=== PATIENT | male | born 1995 | race Caucasian/White ===

== ENCOUNTER 2019-11-15 14:28 | Inpatient (IN) | payer OTHER ==
[~2019-11-15] VITALS: Ht 177.8 cm; Wt 86.0 kg
--- NOTE | 2019-11-15 15:57 | PHYS DOC ---
Past Medical History Past Medical History: Other Additional Past Medical Histor: INGUINAL HERNIA Past Surgical History: No Surgical History Smoking Status: Former Smoker Alcohol Use: None General Adult EDM: Chief Complaint: ABDOMINAL PAIN HPI: HPI: Patient is a 23 year old male who presents with states since August 2014 he has had this left inguinal hernia that is gotten worse over the last 3 years. States it is very painful now so she wanted to touch and is now gone down into his scrotum. Upon examination patient's left side of his scrotum is swollen and there is bowel. It is tender with palpation. When I try to reduce the hernia it is soft, tender to the patient and is not reducible. States his burning nonradiating left inguinal pain is a 7 out of 10. Patient denies abdominal pain, nausea, vomiting, fever, diarrhea, constipation, dysuria, penile discharge, chest pain, shortness of air, cough, numbness or tingling. Patient was asymptomatic with COVID back in August. Review of Systems: Review of Systems: Constitutional: Denies fever or chills. [] Eyes: Denies change in visual acuity. [] HENT: Denies nasal congestion or sore throat. [] Respiratory: Denies cough or shortness of breath. [] Cardiovascular: Denies chest pain or edema. [] GI: Denies abdominal pain, nausea, vomiting, bloody stools or diarrhea. Inguinal hernia pain. [] : Denies dysuria. Left scrotum swelling and pain. [] Musculoskeletal: Denies back pain or joint pain. [] Integument: Denies rash. [] Neurologic: Denies headache, focal weakness or sensory changes. [] Endocrine: Denies polyuria or polydipsia. [] Lymphatic: Denies swollen glands. [] Psychiatric: Denies depression or anxiety. [] Heart Score: Risk Factors: Risk Factors: DM, Current or recent (<one month) smoker, HTN, HLP, family history of CAD, obesity. Risk Scores: Score 0 - 3: 2.5% MACE over next 6 weeks - Discharge Home Score 4 - 6: 20.3% MACE over next 6 weeks - Admit for Clinical Observation Score 7 - 10: 72.7% MACE over next 6 weeks - Early Invasive Strategies Current Medications: Current Medications Medications (Trade) Dose Ordered Sig/Funmilayo Start Time Stop Time Status Last Admin Dose Admin Fentanyl Citrate (Fentanyl 2ml Vial) 25 mcg 1X ONCE 11/15/19 16:00 11/15/19 16:01 Sodium Chloride 1,000 ml @ 1,000 mls/hr 1X ONCE 11/15/19 16:00 11/15/19 16:59 Allergies: Allergies: Allergies Coded Allergies Type Severity Reaction Last Updated Verified No Known Drug Allergies 11/15/19 No Physical Exam: PE: Constitutional: Well developed, well nourished, no acute distress, non-toxic appearance. [] HENT: Normocephalic, atraumatic, bilateral external ears normal, oropharynx mo ist, no oral exudates, nose normal. [] Eyes: PERRLA, EOMI, conjunctiva normal, no discharge. [] Neck: Normal range of motion, no tenderness, supple, no stridor. [] Cardiovascular:Heart rate regular rhythm, no murmur [] Lungs & Thorax: Bilateral breath sounds clear to auscultation [] Abdomen: Bowel sounds normal, soft, no tenderness, no masses, no pulsatile masses. Left scrotal swelling with left inguinal hernia tenderness [] Skin: Warm, dry, no erythema, no rash. [] Back: No tenderness, no CVA tenderness. [] Extremities: No tenderness, no cyanosis, no clubbing, ROM intact, no edema. [] Neurologic: Alert and oriented X 3, normal motor function, normal sensory function, no focal deficits noted. [] Psychologic: Affect normal, judgement normal, mood normal. [] Current Patient Data: Vital Signs: Vital Signs Date Time Temp Pulse Resp B/P (MAP) Pulse Ox O2 Delivery O2 Flow Rate FiO2 11/15/19 14:52 98.2 73 14 146/63 (90) 99 Room Air 98.2 EKG: EKG: [] Radiology/Procedures: Radiology/Procedures: [] Impression: [facility] [address] [place], [place] [id number] IMAGING REPORT Signed PATIENT: BOONE BARRERA: [id number] : 1995 LOCATION: ER AGE: 23 SEX: M EXAM STATUS: REG ER ORD. PHYSICIAN: OSKAR GEE APRN REASON: Incarcerated left inguinal hernia PROCEDURE: CT ABD PELV W/ IV CONTRST ONLY Exam: CT of abdomen and pelvis with contrast INDICATION: Incarcerated left inguinal hernia TECHNIQUE: Sequential axial images through the abdomen and pelvis obtained following the administration of 75 mL of Omni 300 IV contrast. Sagittal and coronal reformatted images were reconstructed from the axial data and reviewed. Comparisons: None FINDINGS: Heart size is normal. No pericardial effusion. Visualized lung bases are clear. No pleural effusion. Liver, spleen, pancreas, gallbladder and adrenals are unremarkable. Kidneys demonstrate symmetric enhancement. No perinephric inflammation or hydronephrosis. No renal or ureteral calculi are identified. Bladder is distended and appears thin-walled. Prostate is not enlarged. Large and small bowel are unremarkable. Appendix is normal. No free intra-abdominal air or fluid. No obstruction. Abdominal aorta has a normal course and caliber. Abdominal vasculature is patent. No enlarged abdominal lymph nodes are identified. There is a moderate-sized fat-containing left indirect inguinal hernia which extends into the scrotum. Mild stranding is noted within the herniated fat. No suspicious osseous lesions or acute fractures. IMPRESSION: Moderate-sized fat-containing left inguinal hernia. No herniated bowel or evidence for obstruction. There is mild fat stranding in the herniated fat which could relate to inflammation. Exposure: One or more of the following in the visualized dose reduction techniques were utilized for this examination: 1. Automated exposure control 2. Adjustment of the MA and/or KV according to patient size 3. Use of iterative of reconstructive technique Electronically signed by: Jennifer Dyer MD (11/15/2019 5:21 PM) [id number] DICTATED and SIGNED BY: JENNIFER DYER MD DATE: 11/15/19 172 Course & Med Decision Making: Course & Med Decision Making Pertinent Labs and Imaging studies reviewed. (See chart for details) Alert and oriented. Speaks in full complete sentences. Ambulatory with steady gait. See HPI. Abdomen is soft and nontender. Tenderness to the left scrotum. Hernia is incarcerated. Hernia can not be reduced. No redness or cellulitis seen. No sores. No penile discharge. I have had Dr Hunt go see the patient and he agrees that it is incarcerated. I have spoken to Dr Lockhart concerning this patient and he states to keep the patient NPO. [] Dragon Disclaimer: Maria D Disclaimer: This electronic medical record was generated, in whole or in part, using a voice recognition dictation system. Departure Departure Impression: Primary Impression: Incarcerated hernia Disposition: ADMITTED INPATIENT Admitting Physician: OUMOU Condition: STABLE Referrals: AUDREY JOSE DO (PCP) Justicifation of Admission Dx: Justifications for Admission: Justification of Admission Dx: Yes Comments: incarcerated bowel OSKAR GEE BELL PERSON Nov 15, 2019 15:57
[2019-11-15] MEDS ORDERED: fentaNYL PF VIAL 100 MCG/2 ML VIAL IVP ONE (16:00)
[2019-11-15] MEDS ORDERED: IV NORMAL SALINE 1000ML BAG 1,000 ML IV ONE (16:00)
[2019-11-15 16:16] LABS: BASO # 0.1 x10^3/uL (0.0-0.2); BASO % 1 % (0-3); EOS # 0.2 x10^3/uL (0.0-0.7); EOS % 2 % (0-3); HEMATOCRIT 41.3 % (39.0-53.0); HEMOGLOBIN 14.4 g/dL (13.0-17.5); LYMPH # 2.4 x10^3/uL (1.0-4.8); LYMPH % 25 % (24-48); MEAN CORPUSCULAR HEMOGLOBIN 30 pg (25-35); MEAN CORPUSCULAR HGB CONC 35 g/dL (31-37); MEAN CORPUSCULAR VOLUME 87 fL (79-100); MONO # 0.7 x10^3/uL (0.0-1.1); MONO % 7 % (0-9); NEUT # 6.3 x10^3/uL (1.8-7.7); NEUT % 66 % (31-73); PLATELET COUNT 277 x10^3/uL (140-400); RED BLOOD COUNT 4.74 x10^6/uL (4.30-5.70); RED CELL DISTRIBUTION WIDTH 13.5 % (11.5-14.5); WHITE BLOOD COUNT 9.6 x10^3/uL (4.0-11.0)
[2019-11-15 16:26] LABS: CALCIUM 8.5 mg/dL (8.5-10.1); CREATININE 1.1 mg/dL (0.7-1.3); GFR 82.2; POTASSIUM 3.8 mmol/L (3.5-5.1)
[2019-11-15 16:29] LABS: PROTHROMBIN TIME PATIENT 13.4 SEC (11.7-14.0)
[2019-11-15 16:37] LABS: ALBUMIN 3.9 g/dL (3.4-5.0); ALBUMIN/GLOBULIN RATIO 1.1 (1.0-1.7); TOTAL BILIRUBIN 0.4 mg/dL (0.2-1.0); TOTAL PROTEIN 7.4 g/dL (6.4-8.2)
[2019-11-15] MEDS ORDERED: CONTRAST GIVEN. MC PRN (16:45)
[2019-11-15] MEDS ORDERED: IOHEXOL 300 MG/ML 100ML VIAL. IV ONE (16:45)
--- NOTE | 2019-11-15 17:24 | RAD ---
Exam: CT of abdomen and pelvis with contrast INDICATION: Incarcerated left inguinal hernia TECHNIQUE: Sequential axial images through the abdomen and pelvis obtained following the administration of 75 mL of Omni 300 IV contrast. Sagittal and coronal reformatted images were reconstructed from the axial data and reviewed. Comparisons: None FINDINGS: Heart size is normal. No pericardial effusion. Visualized lung bases are clear. No pleural effusion. Liver, spleen, pancreas, gallbladder and adrenals are unremarkable. Kidneys demonstrate symmetric enhancement. No perinephric inflammation or hydronephrosis. No renal or ureteral calculi are identified. Bladder is distended and appears thin-walled. Prostate is not enlarged. Large and small bowel are unremarkable. Appendix is normal. No free intra-abdominal air or fluid. No obstruction. Abdominal aorta has a normal course and caliber. Abdominal vasculature is patent. No enlarged abdominal lymph nodes are identified. There is a moderate-sized fat-containing left indirect inguinal hernia which extends into the scrotum. Mild stranding is noted within the herniated fat. No suspicious osseous lesions or acute fractures. IMPRESSION: Moderate-sized fat-containing left inguinal hernia. No herniated bowel or evidence for obstruction. There is mild fat stranding in the herniated fat which could relate to inflammation. Exposure: One or more of the following in the visualized dose reduction techniques were utilized for this examination: 1. Automated exposure control 2. Adjustment of the MA and/or KV according to patient size 3. Use of iterative of reconstructive technique Electronically signed by: Jennifer Holly MD (11/15/2019 5:21 PM) [id number]
[2019-11-15 18:11] LABS: BILIRUBIN,URINE NEGATIVE (NEG); CLARITY,URINE CLEAR; COLOR,URINE YELLOW; NITRITE,URINE NEGATIVE (NEG); PROTEIN,URINE NEGATIVE (NEG-TRACE)
[2019-11-15 18:15] LABS: BARBITURATES NEG (NEG); BENZODIAZEPINES NEG (NEG); CANNABINOIDS NEG (NEG); COCAINE NEG (NEG); METHADONE NEG (NEG); OPIATES NEG (NEG); PHENCYCLIDINE NEG (NEG)
[2019-11-15] MEDS ORDERED: ONDANSETRON PF 4 MG/2 ML VIAL. IV PRN (18:15)
[2019-11-15] MEDS ORDERED: fentaNYL PF VIAL 100 MCG/2 ML VIAL IV PRN (18:15)
[2019-11-15 18:16] LABS: AMPHETAMINE/METHAMPHETAMINE NEG (NEG)
[2019-11-15 18:21] LABS: BACTERIA,URINE 0 /HPF (0-FEW); RBC,URINE 0 /HPF (0-2); WBC,URINE RARE /HPF (0-4)
[2019-11-15 19:10] VITALS: BP 135/64
[2019-11-15] MEDS: IV NORMAL SALINE 1000ML BAG 1,000 ML IV SCH (20:30)
--- NOTE | 2019-11-15 20:50 | NUR ---
Patient has guards at bedside. Addendum: 11/16/19 at 0056 by DIANA DOMINIQUE RN Amended: Links added.
[2019-11-15] MEDS ORDERED: IOHEXOL 300 MG/ML 100ML VIAL. ONE (21:13)
[2019-11-15 23:00] VITALS: BP 116/46
[2019-11-16 03:00] VITALS: BP 106/76
[2019-11-16] MEDS: IV NORMAL SALINE 1000ML BAG 1,000 ML IV SCH ×3 (03:30→22:33)
[2019-11-16 07:00] VITALS: BP 126/59
--- NOTE | 2019-11-16 10:47 | PDOC2 ---
CONSULT Date of Consult Date of Consult DATE: 11/16/19 TIME: 10:43 History of Present Illness Reason for Visit: The patient is a 23 year old male who is incarcerated; he was transferred to the ER with an incarcerated left inguinal hernia. He had known about the hernia for a long time but states it has "worsened" recently. A CT in the ER noted fat incarceration with no bowel involvement. Past Medical History Past Medical History denies Past Surgical History Past Surgical History denies Social History No ALCOHOL: none Current Problem List Problem List Problems Medical Problems: (1) Incarcerated hernia Status: Acute Current Medications Current Medications Current Medications Fentanyl Citrate (Fentanyl 2ml Vial) 25 mcg 1X ONCE IVP Last administered on 11/15/19at 17:00; Start 11/15/19 at 16:00; Stop 11/15/19 at 16:01; Status DC Sodium Chloride 1,000 ml @ 1,000 mls/hr 1X ONCE IV Last administered on 11/15/19at 17:01; Start 11/15/19 at 16:00; Stop 11/15/19 at 16:59; Status DC Iohexol (Omnipaque 300 Mg/ml) 75 ml 1X ONCE IV ; Start 11/15/19 at 16:45; Stop 11/15/19 at 16:46; Status DC Info (CONTRAST GIVEN -- Rx MONITORING) 1 each PRN DAILY PRN MC SEE COMMENTS; Start 11/15/19 at 16:45; Stop 11/17/19 at 16:44 Ondansetron HCl (Zofran) 4 mg PRN Q8HRS PRN IV NAUSEA/VOMITING; Start 11/15/19 at 18:15; Stop 11/16/19 at 18:14 Fentanyl Citrate (Fentanyl 2ml Vial) 50 mcg PRN Q1HR PRN IV PAIN; Start 11/15/19 at 18:15; Stop 11/16/19 at 18:14 Sodium Chloride 1,000 ml @ 125 mls/hr Q8H IV Last administered on 11/16/19at 03:30; Start 11/15/19 at 18:11; Stop 11/16/19 at 18:10 Iohexol (Omnipaque 300 Mg/ml) 100 ml STK-MED ONCE .ROUTE ; Start 11/15/19 at 21:13; Stop 11/15/19 at 21:13; Status DC Allergies Allergies: Coded Allergies: No Known Drug Allergies (Unverified , 11/15/19) ROS General: No: Chills, Night Sweats, Fatigue, Malaise, Appetite, Other PSYCHOLOGICAL ROS: No: Anxiety, Behavioral Disorder, Concentration difficultie, Decreased libido, Depression, Disorientation, Hallucinations, Hostility, Irritablity, Memory difficulties, Mood Swings, Obsessive thoughts, Physical abuse, Sexual abuse, Sleep disturbances, Suicidal ideation, Other Eyes: No Blurry vision, No Decreased vision, No Double vision, No Dry eyes, No Excessive tearing, No Eye Pain, No Itchy Eyes, No Loss of vision, No Photophobia, No Scotomata, No Uses contacts, No Uses glasses, No Other Hematological and Lymphatic: No: Bleeding Problems, Blood Clots, Blood Hebert sfusions, Brusing, Night Sweats, Pallor, Swollen Lymph Nodes, Other ENDOCRINE: No: Breast Changes, Galactorrhea, Hair Pattern Changes, Hot Flashes, Malaise/lethargy, Mood Swings, Palpitations, Polydipsia/polyuria, Skin Changes, Temperature Intolerance, Unexpected Weight Changes, Other Respiratory: No: Cough, Hemoptysis, Orthopnea, Pleuritic Pain, Shortness of breath, SOB with excertion, Sputum Changes, Stridor, Tachypnea, Wheezing, Other Cardiovascular: yes Chest Pain, yes Palpitations, yes Orthopnea, yes Paroxysmal Noc. Dyspnea, yes Edema, yes Lt Headedness, yes Other Gastrointestinal: No Nausea, No Vomiting, No Abdominal Pain, No Diarrhea, No Constipation, No Melena, No Hematochezia, No Other Genitourinary: No Dysuria, No Frequency, No Incontinence, No Hematuria, No Retention, No Discharge, No Urgency, No Pain, No Flank Pain, No Other, No , No , No , No , No , No , No Neurological: No Behavorial Changes, No Bowel/Bladder ControlChng, No Confusion, No Dizziness, No Gait Disturbance, No Headaches, No Impaired Coord/balance, No Memory Loss, No Numbness/Tingling, No Seizures, No Speech Problems, No Tremors, No Visual Changes, No Weakness, No Other Skin: No Dry Skin, No Eczema, No Hair Changes, No Lumps, No Mole Changes, No Mottling, No Nail Changes, No Pruritus, No Rash, No Skin Lesion Changes, No Other, No Acne Physical Exam General: Alert, Oriented X3, Cooperative HEENT: Atraumatic Lungs: Clear to auscultation Abdomen: Soft, Other (L inguinal hernia present, has reduced since admission) Extremities: No clubbing, No cyanosis Skin: No rashes Neuro: Normal speech Psych/Mental Status: Mental status NL Vitals VITALS Vital Signs Date Time Temp Pulse Resp B/P (MAP) Pulse Ox O2 Delivery O2 Flow Rate FiO2 11/16/19 07:00 97.4 66 18 126/59 (81) 100 Room Air 97.4 Labs Labs Laboratory Tests Test 11/15/19 15:42 11/15/19 15:55 11/15/19 17:55 White Blood Count 9.6 x10^3/uL (4.0-11.0) Red Blood Count 4.74 x10^6/uL (4.30-5.70) Hemoglobin 14.4 g/dL (13.0-17.5) Hematocrit 41.3 % (39.0-53.0) Mean Corpuscular Volume 87 fL (79-100) Mean Corpuscular Hemoglobin 30 pg (25-35) Mean Corpuscular Hemoglobin Concent 35 g/dL (31-37) Red Cell Distribution Width 13.5 % (11.5-14.5) Platelet Count 277 x10^3/uL (140-400) Neutrophils (%) (Auto) 66 % (31-73) Lymphocytes (%) (Auto) 25 % (24-48) Monocytes (%) (Auto) 7 % (0-9) Eosinophils (%) (Auto) 2 % (0-3) Basophils (%) (Auto) 1 % (0-3) Neutrophils # (Auto) 6.3 x10^3/uL (1.8-7.7) Lymphocytes # (Auto) 2.4 x10^3/uL (1.0-4.8) Monocytes # (Auto) 0.7 x10^3/uL (0.0-1.1) Eosinophils # (Auto) 0.2 x10^3/uL (0.0-0.7) Basophils # (Auto) 0.1 x10^3/uL (0.0-0.2) Prothrombin Time 13.4 SEC (11.7-14.0) Prothromb Time International Ratio 1.1 (0.8-1.1) Sodium Level 140 mmol/L (136-145) Potassium Level 3.8 mmol/L (3.5-5.1) Chloride Level 105 mmol/L (98-107) Carbon Dioxide Level 26 mmol/L (21-32) Anion Gap 9 (6-14) Blood Urea Nitrogen 15 mg/dL (8-26) Creatinine 1.1 mg/dL (0.7-1.3) Estimated GFR (Cockcroft-Gault) 82.2 BUN/Creatinine Ratio 14 (6-20) Glucose Level 85 mg/dL (70-99) Calcium Level 8.5 mg/dL (8.5-10.1) Total Bilirubin 0.4 mg/dL (0.2-1.0) Aspartate Amino Transf (AST/SGOT) 25 U/L (15-37) Alanine Aminotransferase (ALT/SGPT) 31 U/L (16-63) Alkaline Phosphatase 87 U/L (46-116) Total Protein 7.4 g/dL (6.4-8.2) Albumin 3.9 g/dL (3.4-5.0) Albumin/Globulin Ratio 1.1 (1.0-1.7) Lipase 90 U/L (73-393) Lactic Acid Level 1.0 mmol/L (0.4-2.0) Urine Collection Type Unknown Urine Color Yellow Urine Clarity Clear Urine pH 6.0 (<5.0-8.0) Urine Specific Goodrich >=1.030 (1.000-1.030) Urine Protein Negative mg/dL (NEG-TRACE) Urine Glucose (UA) Negative mg/dL (NEG) Urine Ketones (Stick) 40 mg/dL (NEG) Urine Blood Negative (NEG) Urine Nitrite Negative (NEG) Urine Bilirubin Negative (NEG) Urine Urobilinogen Dipstick 1.0 mg/dL (0.2 mg/dL) Urine Leukocyte Esterase Negative (NEG) Urine RBC 0 /HPF (0-2) Urine WBC Rare /HPF (0-4) Urine Squamous Epithelial Cells None /LPF Urine Bacteria 0 /HPF (0-FEW) Urine Mucus Slight /LPF Urine Opiates Screen Neg (NEG) Urine Methadone Screen Neg (NEG) Urine Barbiturates Neg (NEG) Urine Phencyclidine Screen Neg (NEG) Urine Amphetamine/Methamphetamine Neg (NEG) Urine Benzodiazepines Screen Neg (NEG) Urine Cocaine Screen Neg (NEG) Urine Cannabinoids Screen Neg (NEG) Urine Ethyl Alcohol Neg (NEG) Laboratory Tests Test 11/15/19 15:42 11/15/19 15:55 11/15/19 17:55 White Blood Count 9.6 x10^3/uL (4.0-11.0) Red Blood Count 4.74 x10^6/uL (4.30-5.70) Hemoglobin 14.4 g/dL (13.0-17.5) Hematocrit 41.3 % (39.0-53.0) Mean Corpuscular Volume 87 fL (79-100) Mean Corpuscular Hemoglobin 30 pg (25-35) Mean Corpuscular Hemoglobin Concent 35 g/dL (31-37) Red Cell Distribution Width 13.5 % (11.5-14.5) Platelet Count 277 x10^3/uL (140-400) Neutrophils (%) (Auto) 66 % (31-73) Lymphocytes (%) (Auto) 25 % (24-48) Monocytes (%) (Auto) 7 % (0-9) Eosinophils (%) (Auto) 2 % (0-3) Basophils (%) (Auto) 1 % (0-3) Neutrophils # (Auto) 6.3 x10^3/uL (1.8-7.7) Lymphocytes # (Auto) 2.4 x10^3/uL (1.0-4.8) Monocytes # (Auto) 0.7 x10^3/uL (0.0-1.1) Eosinophils # (Auto) 0.2 x10^3/uL (0.0-0.7) Basophils # (Auto) 0.1 x10^3/uL (0.0-0.2) Prothrombin Time 13.4 SEC (11.7-14.0) Prothromb Time International Ratio 1.1 (0.8-1.1) Sodium Level 140 mmol/L (136-145) Potassium Level 3.8 mmol/L (3.5-5.1) Chloride Level 105 mmol/L (98-107) Carbon Dioxide Level 26 mmol/L (21-32) Anion Gap 9 (6-14) Blood Urea Nitrogen 15 mg/dL (8-26) Creatinine 1.1 mg/dL (0.7-1.3) Estimated GFR (Cockcroft-Gault) 82.2 BUN/Creatinine Ratio 14 (6-20) Glucose Level 85 mg/dL (70-99) Calcium Level 8.5 mg/dL (8.5-10.1) Total Bilirubin 0.4 mg/dL (0.2-1.0) Aspartate Amino Transf (AST/SGOT) 25 U/L (15-37) Alanine Aminotransferase (ALT/SGPT) 31 U/L (16-63) Alkaline Phosphatase 87 U/L (46-116) Total Protein 7.4 g/dL (6.4-8.2) Albumin 3.9 g/dL (3.4-5.0) Albumin/Globulin Ratio 1.1 (1.0-1.7) Lipase 90 U/L (73-393) Lactic Acid Level 1.0 mmol/L (0.4-2.0) Urine Collection Type Unknown Urine Color Yellow Urine Clarity Clear Urine pH 6.0 (<5.0-8.0) Urine Specific Goodrich >=1.030 (1.000-1.030) Urine Protein Negative mg/dL (NEG-TRACE) Urine Glucose (UA) Negative mg/dL (NEG) Urine Ketones (Stick) 40 mg/dL (NEG) Urine Blood Negative (NEG) Urine Nitrite Negative (NEG) Urine Bilirubin Negative (NEG) Urine Urobilinogen Dipstick 1.0 mg/dL (0.2 mg/dL) Urine Leukocyte Esterase Negative (NEG) Urine RBC 0 /HPF (0-2) Urine WBC Rare /HPF (0-4) Urine Squamous Epithelial Cells None /LPF Urine Bacteria 0 /HPF (0-FEW) Urine Mucus Slight /LPF Urine Opiates Screen Neg (NEG) Urine Methadone Screen Neg (NEG) Urine Barbiturates Neg (NEG) Urine Phencyclidine Screen Neg (NEG) Urine Amphetamine/Methamphetamine Neg (NEG) Urine Benzodiazepines Screen Neg (NEG) Urine Cocaine Screen Neg (NEG) Urine Cannabinoids Screen Neg (NEG) Urine Ethyl Alcohol Neg (NEG) Assessment/Plan Assessment/Plan L inguinal hernia, incarcerated on admission, but currently reduced. Plan for covid testing today, to [place] tomorrow for repair. BERNEICE KUMARI MD Nov 16, 2019 10:47
[2019-11-16 11:00] VITALS: BP 116/57
--- NOTE | 2019-11-16 11:52 | PDOC1 ---
History and Physical Date of Admission Date of Admission DATE: 11/16/19 TIME: 11:50 Identification/Chief Complaint Chief Complaint SEEN IN ER , 23 year old male who presents with states since August 2014 he has had this left inguinal hernia that is gotten worse over the last 3 years. very painful , now gone down into his scrotum. Upon examination patient's left side of his scrotum is swollen // tender with palpation. // not reducible. States his burning nonradiating left inguinal pain is a 7 out of 10. denies abdominal pain, nausea, vomiting, fever, diarrhea, constipation, dysuria, penile discharge, chest pain, shortness of air, cough, numbness or tingling. Patient was asymptomatic with COVID in 2019 Past Medical History Past Medical History Past Medical History Past Medical History Past Medical History: Other Additional Past Medical Histor: INGUINAL HERNIA Past Surgical History: No Surgical History Smoking Status: Former Smoker Alcohol Use: None Family History Family History: High Cholestrol, Hypertension Social History Smoke: No ALCOHOL: none Drugs: None Current Problem List Problem List Problems Medical Problems: (1) Incarcerated hernia Status: Acute Current Medications Current Medications Current Medications Fentanyl Citrate (Fentanyl 2ml Vial) 25 mcg 1X ONCE IVP Last administered on 11/15/19at 17:00; Start 11/15/19 at 16:00; Stop 11/15/19 at 16:01; Status DC Sodium Chloride 1,000 ml @ 1,000 mls/hr 1X ONCE IV Last administered on 11/15/19at 17:01; Start 11/15/19 at 16:00; Stop 11/15/19 at 16:59; Status DC Iohexol (Omnipaque 300 Mg/ml) 75 ml 1X ONCE IV ; Start 11/15/19 at 16:45; Stop 11/15/19 at 16:46; Status DC Info (CONTRAST GIVEN -- Rx MONITORING) 1 each PRN DAILY PRN MC SEE COMMENTS; Start 11/15/19 at 16:45; Stop 11/17/19 at 16:44 Ondansetron HCl (Zofran) 4 mg PRN Q8HRS PRN IV NAUSEA/VOMITING; Start 11/15/19 at 18:15; Stop 11/16/19 at 18:14 Fentanyl Citrate (Fentanyl 2ml Vial) 50 mcg PRN Q1HR PRN IV PAIN; Start 11/15/19 at 18:15; Stop 11/16/19 at 18:14 Sodium Chloride 1,000 ml @ 125 mls/hr Q8H IV Last administered on 11/16/19at 03:30; Start 11/15/19 at 18:11; Stop 11/16/19 at 18:10 Iohexol (Omnipaque 300 Mg/ml) 100 ml STK-MED ONCE .ROUTE ; Start 11/15/19 at 21:13; Stop 11/15/19 at 21:13; Status DC Cefazolin Sodium/ Dextrose 50 ml @ 100 mls/hr 1X PREOP PRN IV PRIOR TO PROCEDURE; Start 11/17/19 at 06:00; Stop 11/17/19 at 18:00 Allergies Allergies: Coded Allergies: No Known Drug Allergies (Unverified , 11/15/19) ROS Review of System Review of Systems: Review of Systems: Constitutional: Denies fever or chills. [] Eyes: Denies change in visual acuity. [] HENT: Denies nasal congestion or sore throat. [] Respiratory: Denies cough or shortness of breath. [] Cardiovascular: Denies chest pain or edema. [] GI: Denies abdominal pain, nausea, vomiting, bloody stools or diarrhea. POS Inguinal hernia pain. [] : Denies dysuria. Left scrotum swelling and pain. [] Musculoskeletal: Denies back pain or joint pain. [] Integument: Denies rash. [] Neurologic: Denies headache, focal weakness or sensory changes. [] Endocrine: Denies polyuria or polydipsia. [] Lymphatic: Denies swollen glands. [] Psychiatric: Denies depression or anxiety. [] 14 PT ROS OTHERWISE NEG Hematological and Lymphatic: No: Bleeding Problems, Blood Clots, Blood Transfusions, Brusing, Night Sweats, Pallor, Swollen Lymph Nodes, Other Respiratory: No: Cough, Hemoptysis, Orthopnea, Pleuritic Pain, Shortness of breath, SOB with excertion, Sputum Changes, Stridor, Tachypnea, Wheezing, Other Gastrointestinal: No Nausea, No Vomiting, No Abdominal Pain, No Diarrhea, No Constipation, No Melena, No Hematochezia, No Other Musculoskeletal: No Gait Disturbance, No Joint Pain, No Joint Stiffness, No Joint Swelling, No Muscle Pain, No Muscular Weakness, No Pain In:, No Swelling In:, No Other Physical Exam Physical Exam Physical Exam: PE: Constitutional: Well developed, well nourished, no acute distress, non-toxic appearance. [] HENT: Normocephalic, atraumatic, bilateral external ears normal, oropharynx moist, no oral exudates, nose normal. [] Eyes: PERRLA, EOMI, conjunctiva normal, no discharge. [] Neck: Normal range of motion, no tenderness, supple, no stridor. [] Cardiovascular:Heart rate regular rhythm, no murmur [] Lungs & Thorax: Bilateral breath sounds clear to auscultation [] Abdomen: Bowel sounds normal, soft, no tenderness, no masses, no pulsatile masses. Left scrotal swelling with left inguinal hernia tenderness [] Skin: Warm, dry, no erythema, no rash. [] Back: No tenderness, no CVA tenderness. [] Extremities: No tenderness, no cyanosis, no clubbing, ROM intact, no edema. [] Neurologic: Alert and oriented X 3, normal motor function, normal sensory function, no focal deficits noted. [] Psychologic: Affect normal, judgment normal, mood normal. [] General: Alert, Oriented X3, Cooperative, No acute distress HEENT: EOMI, Mucous membr. moist/pink Lungs: Clear to auscultation, Normal air movement Heart: S1S2, RRR, no thrills, no gallops, no murmurs Breasts: Not examined Abdomen: Normal bowel sounds, Soft, No hepatosplenomegaly Rectal Exam: not examined Extremities: No cyanosis Neuro: Normal speech, Strength at 5/5 X4 ext, Cranial nerves 3-12 NL Psych/Mental Status: Mental status NL, Mood NL Vitals Vitals Vital Signs Date Time Temp Pulse Resp B/P (MAP) Pulse Ox O2 Delivery O2 Flow Rate FiO2 11/16/19 07:00 97.4 66 18 126/59 (81) 100 Room Air 97.4 Labs Labs Laboratory Tests Test 11/15/19 15:42 11/15/19 15:55 11/15/19 17:55 White Blood Count 9.6 x10^3/uL (4.0-11.0) Red Blood Count 4.74 x10^6/uL (4.30-5.70) Hemoglobin 14.4 g/dL (13.0-17.5) Hematocrit 41.3 % (39.0-53.0) Mean Corpuscular Volume 87 fL (79-100) Mean Corpuscular Hemoglobin 30 pg (25-35) Mean Corpuscular Hemoglobin Concent 35 g/dL (31-37) Red Cell Distribution Width 13.5 % (11.5-14.5) Platelet Count 277 x10^3/uL (140-400) Neutrophils (%) (Auto) 66 % (31-73) Lymphocytes (%) (Auto) 25 % (24-48) Monocytes (%) (Auto) 7 % (0-9) Eosinophils (%) (Auto) 2 % (0-3) Basophils (%) (Auto) 1 % (0-3) Neutrophils # (Auto) 6.3 x10^3/uL (1.8-7.7) Lymphocytes # (Auto) 2.4 x10^3/uL (1.0-4.8) Monocytes # (Auto) 0.7 x10^3/uL (0.0-1.1) Eosinophils # (Auto) 0.2 x10^3/uL (0.0-0.7) Basophils # (Auto) 0.1 x10^3/uL (0.0-0.2) Prothrombin Time 13.4 SEC (11.7-14.0) Prothromb Time International Ratio 1.1 (0.8-1.1) Sodium Level 140 mmol/L (136-145) Potassium Level 3.8 mmol/L (3.5-5.1) Chloride Level 105 mmol/L (98-107) Carbon Dioxide Level 26 mmol/L (21-32) Anion Gap 9 (6-14) Blood Urea Nitrogen 15 mg/dL (8-26) Creatinine 1.1 mg/dL (0.7-1.3) Estimated GFR (Cockcroft-Gault) 82.2 BUN/Creatinine Ratio 14 (6-20) Glucose Level 85 mg/dL (70-99) Calcium Level 8.5 mg/dL (8.5-10.1) Total Bilirubin 0.4 mg/dL (0.2-1.0) Aspartate Amino Transf (AST/SGOT) 25 U/L (15-37) Alanine Aminotransferase (ALT/SGPT) 31 U/L (16-63) Alkaline Phosphatase 87 U/L (46-116) Total Protein 7.4 g/dL (6.4-8.2) Albumin 3.9 g/dL (3.4-5.0) Albumin/Globulin Ratio 1.1 (1.0-1.7) Lipase 90 U/L (73-393) Lactic Acid Level 1.0 mmol/L (0.4-2.0) Urine Collection Type Unknown Urine Color Yellow Urine Clarity Clear Urine pH 6.0 (<5.0-8.0) Urine Specific Hammond >=1.030 (1.000-1.030) Urine Protein Negative mg/dL (NEG-TRACE) Urine Glucose (UA) Negative mg/dL (NEG) Urine Ketones (Stick) 40 mg/dL (NEG) Urine Blood Negative (NEG) Urine Nitrite Negative (NEG) Urine Bilirubin Negative (NEG) Urine Urobilinogen Dipstick 1.0 mg/dL (0.2 mg/dL) Urine Leukocyte Esterase Negative (NEG) Urine RBC 0 /HPF (0-2) Urine WBC Rare /HPF (0-4) Urine Squamous Epithelial Cells None /LPF Urine Bacteria 0 /HPF (0-FEW) Urine Mucus Slight /LPF Urine Opiates Screen Neg (NEG) Urine Methadone Screen Neg (NEG) Urine Barbiturates Neg (NEG) Urine Phencyclidine Screen Neg (NEG) Urine Amphetamine/Methamphetamine Neg (NEG) Urine Benzodiazepines Screen Neg (NEG) Urine Cocaine Screen Neg (NEG) Urine Cannabinoids Screen Neg (NEG) Urine Ethyl Alcohol Neg (NEG) Laboratory Tests Test 11/15/19 15:42 11/15/19 15:55 11/15/19 17:55 White Blood Count 9.6 x10^3/uL (4.0-11.0) Red Blood Count 4.74 x10^6/uL (4.30-5.70) Hemoglobin 14.4 g/dL (13.0-17.5) Hematocrit 41.3 % (39.0-53.0) Mean Corpuscular Volume 87 fL (79-100) Mean Corpuscular Hemoglobin 30 pg (25-35) Mean Corpuscular Hemoglobin Concent 35 g/dL (31-37) Red Cell Distribution Width 13.5 % (11.5-14.5) Platelet Count 277 x10^3/uL (140-400) Neutrophils (%) (Auto) 66 % (31-73) Lymphocytes (%) (Auto) 25 % (24-48) Monocytes (%) (Auto) 7 % (0-9) Eosinophils (%) (Auto) 2 % (0-3) Basophils (%) (Auto) 1 % (0-3) Neutrophils # (Auto) 6.3 x10^3/uL (1.8-7.7) Lymphocytes # (Auto) 2.4 x10^3/uL (1.0-4.8) Monocytes # (Auto) 0.7 x10^3/uL (0.0-1.1) Eosinophils # (Auto) 0.2 x10^3/uL (0.0-0.7) Basophils # (Auto) 0.1 x10^3/uL (0.0-0.2) Prothrombin Time 13.4 SEC (11.7-14.0) Prothromb Time International Ratio 1.1 (0.8-1.1) Sodium Level 140 mmol/L (136-145) Potassium Level 3.8 mmol/L (3.5-5.1) Chloride Level 105 mmol/L (98-107) Carbon Dioxide Level 26 mmol/L (21-32) Anion Gap 9 (6-14) Blood Urea Nitrogen 15 mg/dL (8-26) Creatinine 1.1 mg/dL (0.7-1.3) Estimated GFR (Cockcroft-Gault) 82.2 BUN/Creatinine Ratio 14 (6-20) Glucose Level 85 mg/dL (70-99) Calcium Level 8.5 mg/dL (8.5-10.1) Total Bilirubin 0.4 mg/dL (0.2-1.0) Aspartate Amino Transf (AST/SGOT) 25 U/L (15-37) Alanine Aminotransferase (ALT/SGPT) 31 U/L (16-63) Alkaline Phosphatase 87 U/L (46-116) Total Protein 7.4 g/dL (6.4-8.2) Albumin 3.9 g/dL (3.4-5.0) Albumin/Globulin Ratio 1.1 (1.0-1.7) Lipase 90 U/L (73-393) Lactic Acid Level 1.0 mmol/L (0.4-2.0) Urine Collection Type Unknown Urine Color Yellow Urine Clarity Clear Urine pH 6.0 (<5.0-8.0) Urine Specific Hammond >=1.030 (1.000-1.030) Urine Protein Negative mg/dL (NEG-TRACE) Urine Glucose (UA) Negative mg/dL (NEG) Urine Ketones (Stick) 40 mg/dL (NEG) Urine Blood Negative (NEG) Urine Nitrite Negative (NEG) Urine Bilirubin Negative (NEG) Urine Urobilinogen Dipstick 1.0 mg/dL (0.2 mg/dL) Urine Leukocyte Esterase Negative (NEG) Urine RBC 0 /HPF (0-2) Urine WBC Rare /HPF (0-4) Urine Squamous Epithelial Cells None /LPF Urine Bacteria 0 /HPF (0-FEW) Urine Mucus Slight /LPF Urine Opiates Screen Neg (NEG) Urine Methadone Screen Neg (NEG) Urine Barbiturates Neg (NEG) Urine Phencyclidine Screen Neg (NEG) Urine Amphetamine/Methamphetamine Neg (NEG) Urine Benzodiazepines Screen Neg (NEG) Urine Cocaine Screen Neg (NEG) Urine Cannabinoids Screen Neg (NEG) Urine Ethyl Alcohol Neg (NEG) Images Images INDICATION: Incarcerated left inguinal hernia TECHNIQUE: Sequential axial images through the abdomen and pelvis obtained following the administration of 75 mL of Omni 300 IV contrast. Sagittal and coronal reformatted images were reconstructed from the axial data and reviewed. Comparisons: None FINDINGS: Heart size is normal. No pericardial effusion. Visualized lung bases are clear. No pleural effusion. Liver, spleen, pancreas, gallbladder and adrenals are unremarkable. Kidneys demonstrate symmetric enhancement. No perinephric inflammation or hydronephrosis. No renal or ureteral calculi are identified. Bladder is distended and appears thin-walled. Prostate is not enlarged. Large and small bowel are unremarkable. Appendix is normal. No free intra-abdominal air or fluid. No obstruction. Abdominal aorta has a normal course and caliber. Abdominal vasculature is patent. No enlarged abdominal lymph nodes are identified. There is a moderate-sized fat-containing left indirect inguinal hernia which extends into the scrotum. Mild stranding is noted within the herniated fat. No suspicious osseous lesions or acute fractures. IMPRESSION: Moderate-sized fat-containing left inguinal hernia. No herniated bowel or evidence for obstruction. There is mild fat stranding in the herniated fat which could relate to inflammation. Exposure: One or more of the following in the visualized dose reduction techniques were utilized for this examination: 1. Automated exposure control 2. Adjustment of the MA and/or KV according to patient size 3. Use of iterative of reconstructive technique Electronically signed by: Dina Dyer MD (11/15/2019 5:21 PM) [id number] DICTATED and SIGNED BY: DINA DYER MD DATE: 11/15/19 172 VTE Prophylaxis Ordered VTE Prophylaxis Devices: No VTE Pharmacological Prophylaxi: Yes Assessment/Plan Assessment/Plan IMPRESSION: Incarcerated inguinal hernia Moderate-sized fat-containing left inguinal hernia. No herniated bowel or evidence for obstruction. There is mild fat stranding in the herniated fat which could relate to inflammation. plan========= admit npo GEN SURGERY CONSULT DVT PROPHYLAXIS NPO covid testing PENDING OR 11/16 for repair. Justicifation of Admission Dx: Justifications for Admission: Justification of Admission Dx: Yes DANY FRANCE MD Nov 16, 2019 11:52
[2019-11-16 15:00] VITALS: BP 104/64
[2019-11-16 19:00] VITALS: BP 119/66
[2019-11-16 23:00] VITALS: BP 100/68
[2019-11-17] VITALS (12 sets, daily range): BP systolic 82–135; BP diastolic 48–78
[2019-11-17] MEDS: IV NORMAL SALINE 1000ML BAG 1,000 ML IV SCH ×3 (06:33→23:35)
[2019-11-17] MEDS ORDERED: BUPIVACAINE-EPI 0.5%-1:200000 MPF 30 ML VIAL. ONE (06:55)
[2019-11-17] MEDS ORDERED: PROCHLORPERAZINE 10 MG/2 ML VIAL. IV PRN (07:00)
[2019-11-17] MEDS ORDERED: MORPHINE SULFATE 2 MG/ML VIAL. IV PRN (07:00)
[2019-11-17] MEDS ORDERED: HYDROmorphone 2 MG/ML VIAL IV PRN (07:00)
[2019-11-17] MEDS ORDERED: fentaNYL PF VIAL 100 MCG/2 ML VIAL IV PRN (07:00)
[2019-11-17] MEDS ORDERED: IV RINGERS,LACTATED 1000ML 1,000 ML IV SCH (07:00)
[2019-11-17] MEDS ORDERED: ONDANSETRON PF 4 MG/2 ML VIAL. IV PRN (07:00)
[2019-11-17] MEDS ORDERED: LIDOCAINE 1% PF 2 ML VIAL. ID PRN (07:00)
[2019-11-17] MEDS ORDERED: fentaNYL PF VIAL 100 MCG/2 ML VIAL ONE ×2 (07:14→10:13)
[2019-11-17] MEDS ORDERED: ROCURONIUM 50 MG/5 ML VIAL. ONE (07:14)
[2019-11-17] MEDS ORDERED: PROPOFOL 10 MG/ML (20ML) VIAL. IV ONE (07:15)
[2019-11-17] MEDS ORDERED: ONDANSETRON PF 4 MG/2 ML VIAL. ONE (07:15)
[2019-11-17] MEDS ORDERED: LIDOCAINE 2% PF 5 ML VIAL. ONE (07:15)
[2019-11-17] MEDS ORDERED: DESFLURANE 61 TO 120 MINUTES IH ONE (07:15)
[2019-11-17] MEDS ORDERED: DEXAMETHASONE SOD PHOS 4 MG/ML VIAL ONE (07:15)
[2019-11-17] MEDS ORDERED: BACITRACIN 50,000 UNIT in IV NORMAL SALINE 500ML BAG 500 ML IRR ONE (07:30)
--- NOTE | 2019-11-17 08:29 | NUR ---
patient left for surgery at approximately 0820.
[2019-11-17] MEDS ORDERED: KETOROLAC 30 MG/ML VIAL. ONE (09:01)
[2019-11-17] MEDS ORDERED: SEVOFLURANE 61 TO 120 MINUTES. IH ONE (10:06)
[2019-11-17] MEDS: fentaNYL PF VIAL 100 MCG/2 ML VIAL IV PRN ×2 (10:16→10:22)
--- NOTE | 2019-11-17 10:24 | PDOC4 ---
Operative Note Operative Note Operative Note: Preoperative Diagnosis: Left inguinal hernia Postoperative Diagnosis: Same Procedure: Left inguinal hernia repair with mesh Surgeon: Richy Economic History Teacher: JAVI Vee Anesthesia: General EBL: 10 mL Specimen: Hernia sac to pathology Drains: None Complications: None Indication: The patient is a 23-year-old male presented with left inguinal hernia and incarceration with fatty contents. The incarceration did resolve spontaneously. The plan is to proceed with a repair of the left inguinal hernia. The risks of surgery were discussed which include bleeding, infection, recurrence, pain, anesthetic risk, potential need for additional surgery procedure. He understands and would like to proceed. Description: The patient was taken to the operating room and placed supine on the operating table. General anesthesia was performed. The left groin was shaved prepped with ChloraPrep and draped in a standard surgical manner. An incision was made in the left groin with a scalpel. Cautery dissection was carried down to the external beak aponeurosis. The aponeurosis was opened down to the external ring. The contents of the inguinal canal were digitally mobilized and encircled with a Cherrie drain. He had a fairly large indirect hernia sac present. This was mobilized from the other cord structures down to its base. The hernia sac was amputated and the excised portion was sent as a specimen. The stump was oversewn and inverted. The defect was filled with a medium sized Phasix mesh plug. The plug was sutured into position with 2-0 Vicryl. The inguinal floor was then reinforced with a keyhole Prolene mesh patch. The patch was also sutured into position with 2-0 Vicryl. The external oblique was closed over the mesh with 2-0 Vicryl. The subcutaneous tissue was approximated with 3-0 Vicryl. The skin was closed with 4-0 Monocryl. The incision was infiltrated with half percent Marcaine with epinephrine. Steri- Strips and a sterile dressing were applied. The patient tolerated the procedure well and sent to the recovery room in stable condition. At the end of the case all counts were correct. BERENICE KUMARI MD Nov 17, 2019 10:24
[2019-11-17] MEDS ORDERED: oxyCODONE/APAP 5/325 1 TAB TABLET PO PRN (10:30)
--- NOTE | 2019-11-17 11:00 | PDOC ---
PROGRESS NOTES History of Present Illness History of Present Illness VTE Prophylaxis Ordered VTE Prophylaxis Devices: No VTE Pharmacological Prophylaxi: Yes Assessment/Plan Assessment/Plan IMPRESSION: Incarcerated inguinal hernia POD # 1 Moderate-sized fat-containing left inguinal hernia. No herniated bowel or evidence for obstruction. There is mild fat stranding in the herniated fat which could relate to inflammation. plan========= admit npo GEN SURGERY FOLLOWING DVT PROPHYLAXIS NPO covid testing PENDING OR 11/16 for repair. D/W RN Justicifation of Admission Dx: Justicifation of Admission Dx: Justifications for Admission: Justification of Admission Dx: Yes Operative Note Operative Note Operative Note: Preoperative Diagnosis: Left inguinal hernia Postoperative Diagnosis: Same Procedure: Left inguinal hernia repair with mesh Surgeon: Richy Farm Implement Mechanic: JAVI Vee Anesthesia: General EBL: 10 mL Specimen: Hernia sac to pathology Drains: None Complications: None Indication: The patient is a 23-year-old male presented with left inguinal hernia and incarceration with fatty contents. The incarceration did resolve spontaneousl Vitals Vitals Vital Signs Date Time Temp Pulse Resp B/P (MAP) Pulse Ox O2 Delivery O2 Flow Rate FiO2 11/17/19 10:32 86 16 122/62 98 Room Air 11/17/19 10:17 98.9 98.9 11/17/19 10:02 10 Physical Exam General: Alert, Oriented X3, Cooperative, No acute distress Abdomen: Normal bowel sounds, Soft, No hepatosplenomegaly Extremities: No cyanosis Skin: No rashes Assessment and Plan Assessmemt and Plan Problems Medical Problems: (1) Incarcerated hernia Status: Acute Comment Review of Relevant I have reviewed the following items lucho (where applicable) has been applied. Labs Laboratory Tests Test 11/15/19 15:42 11/15/19 15:55 11/15/19 17:55 11/15/19 20:00 White Blood Count 9.6 x10^3/uL (4.0-11.0) Red Blood Count 4.74 x10^6/uL (4.30-5.70) Hemoglobin 14.4 g/dL (13.0-17.5) Hematocrit 41.3 % (39.0-53.0) Mean Corpuscular Volume 87 fL (79-100) Mean Corpuscular Hemoglobin 30 pg (25-35) Mean Corpuscular Hemoglobin Concent 35 g/dL (31-37) Red Cell Distribution Width 13.5 % (11.5-14.5) Platelet Count 277 x10^3/uL (140-400) Neutrophils (%) (Auto) 66 % (31-73) Lymphocytes (%) (Auto) 25 % (24-48) Monocytes (%) (Auto) 7 % (0-9) Eosinophils (%) (Auto) 2 % (0-3) Basophils (%) (Auto) 1 % (0-3) Neutrophils # (Auto) 6.3 x10^3/uL (1.8-7.7) Lymphocytes # (Auto) 2.4 x10^3/uL (1.0-4.8) Monocytes # (Auto) 0.7 x10^3/uL (0.0-1.1) Eosinophils # (Auto) 0.2 x10^3/uL (0.0-0.7) Basophils # (Auto) 0.1 x10^3/uL (0.0-0.2) Prothrombin Time 13.4 SEC (11.7-14.0) Prothromb Time International Ratio 1.1 (0.8-1.1) Sodium Level 140 mmol/L (136-145) Potassium Level 3.8 mmol/L (3.5-5.1) Chloride Level 105 mmol/L (98-107) Carbon Dioxide Level 26 mmol/L (21-32) Anion Gap 9 (6-14) Blood Urea Nitrogen 15 mg/dL (8-26) Creatinine 1.1 mg/dL (0.7-1.3) Estimated GFR (Cockcroft-Gault) 82.2 BUN/Creatinine Ratio 14 (6-20) Glucose Level 85 mg/dL (70-99) Calcium Level 8.5 mg/dL (8.5-10.1) Total Bilirubin 0.4 mg/dL (0.2-1.0) Aspartate Amino Transf (AST/SGOT) 25 U/L (15-37) Alanine Aminotransferase (ALT/SGPT) 31 U/L (16-63) Alkaline Phosphatase 87 U/L (46-116) Total Protein 7.4 g/dL (6.4-8.2) Albumin 3.9 g/dL (3.4-5.0) Albumin/Globulin Ratio 1.1 (1.0-1.7) Lipase 90 U/L (73-393) Lactic Acid Level 1.0 mmol/L (0.4-2.0) Urine Collection Type Unknown Urine Color Yellow Urine Clarity Clear Urine pH 6.0 (<5.0-8.0) Urine Specific [employer] [place] >=1.030 (1.000-1.030) Urine Protein Negative mg/dL (NEG-TRACE) Urine Glucose (UA) Negative mg/dL (NEG) Urine Ketones (Stick) 40 mg/dL (NEG) Urine Blood Negative (NEG) Urine Nitrite Negative (NEG) Urine Bilirubin Negative (NEG) Urine Urobilinogen Dipstick 1.0 mg/dL (0.2 mg/dL) Urine Leukocyte Esterase Negative (NEG) Urine RBC 0 /HPF (0-2) Urine WBC Rare /HPF (0-4) Urine Squamous Epithelial Cells None /LPF Urine Bacteria 0 /HPF (0-FEW) Urine Mucus Slight /LPF Urine Opiates Screen Neg (NEG) Urine Methadone Screen Neg (NEG) Urine Barbiturates Neg (NEG) Urine Phencyclidine Screen Neg (NEG) Urine Amphetamine/Methamphetamine Neg (NEG) Urine Benzodiazepines Screen Neg (NEG) Urine Cocaine Screen Neg (NEG) Urine Cannabinoids Screen Neg (NEG) Urine Ethyl Alcohol Neg (NEG) Coronavirus (COVID-19)(PCR) Negative (NEGATIVE) Medications Current Medications Fentanyl Citrate (Fentanyl 2ml Vial) 25 mcg 1X ONCE IVP Last administered on 11/15/19at 17:00; Start 11/15/19 at 16:00; Stop 11/15/19 at 16:01; Status DC Sodium Chloride 1,000 ml @ 1,000 mls/hr 1X ONCE IV Last administered on 11/15/19at 17:01; Start 11/15/19 at 16:00; Stop 11/15/19 at 16:59; Status DC Iohexol (Omnipaque 300 Mg/ml) 75 ml 1X ONCE IV ; Start 11/15/19 at 16:45; Stop 11/15/19 at 16:46; Status DC Info (CONTRAST GIVEN -- Rx MONITORING) 1 each PRN DAILY PRN MC SEE COMMENTS; Start 11/15/19 at 16:45; Stop 11/17/19 at 16:44 Ondansetron HCl (Zofran) 4 mg PRN Q8HRS PRN IV NAUSEA/VOMITING; Start 11/15/19 at 18:15; Stop 11/16/19 at 18:14; Status DC Fentanyl Citrate (Fentanyl 2ml Vial) 50 mcg PRN Q1HR PRN IV PAIN; Start 11/15/19 at 18:15; Stop 11/16/19 at 18:14; Status DC Sodium Chloride 1,000 ml @ 125 mls/hr Q8H IV Last administered on 11/16/19at 14:55; Start 11/15/19 at 18:11; Stop 11/16/19 at 18:10; Status DC Iohexol (Omnipaque 300 Mg/ml) 100 ml [employer] ONCE .ROUTE ; Start 11/15/19 at 21:13; Stop 11/15/19 at 21:13; Status DC Cefazolin Sodium/ Dextrose 50 ml @ 100 mls/hr 1X PREOP PRN IV PRIOR TO PROCEDURE Last administered on 11/17/19at 08:40; Start 11/17/19 at 06:00; Stop 11/17/19 at 18:00 Ondansetron HCl (Zofran) 4 mg PRN Q6HRS PRN IV NAUSEA/VOMITING; Start 11/17/19 at 07:00; Stop 11/18/19 at 06:59 Fentanyl Citrate (Fentanyl 2ml Vial) 25 mcg PRN Q5MIN PRN IV MILD PAIN 1-3; Start 11/17/19 at 07:00; Stop 11/18/19 at 06:59 Fentanyl Citrate (Fentanyl 2ml Vial) 50 mcg PRN Q5MIN PRN IV MODERATE TO SEVERE PAIN Last administered on 11/17/19at 10:22; Start 11/17/19 at 07:00; Stop 11/18/19 at 06:59 Morphine Sulfate (Morphine Sulfate) 1 mg PRN Q10MIN PRN IV SEVERE PAIN 7-10; Start 11/17/19 at 07:00; Stop 11/18/19 at 06:59 Ringer's Solution 1,000 ml @ 30 mls/hr Q24H IV ; Start 11/17/19 at 07:00; Stop 11/17/19 at 18:59 Lidocaine HCl (Xylocaine-Mpf 1% 2ml Vial) 2 ml PRN 1X PRN ID PRIOR TO IV START; Start 11/17/19 at 07:00; Stop 11/18/19 at 06:59 Hydromorphone HCl (Dilaudid) 0.5 mg PRN Q10MIN PRN IV SEV PAIN, Second choice; Start 11/17/19 at 07:00; Stop 11/18/19 at 06:59 Prochlorperazine Edisylate (Compazine) 5 mg PACU PRN PRN IV NAUSEA, MRX1; Start 11/17/19 at 07:00; Stop 11/18/19 at 06:59 Sodium Chloride 1,000 ml @ 125 mls/hr Q8H IV Last administered on 11/17/19at 06:33; Start 11/16/19 at 22:00 Bupivacaine HCl/ Epinephrine Bitart (Sensorcain-Epi 0.5%-1:281067 Mpf) 30 ml STK-MED ONCE .ROUTE Last administered on 11/17/19at 08:57; Start 11/17/19 at 06:55; Stop 11/17/19 at 06:56; Status DC Bacitracin 26985 unit/Sodium Chloride 500 ml @ 500 mls/hr 1X ONCE IRR Last administered on 11/17/19at 08:57; Start 11/17/19 at 07:30; Stop 11/17/19 at 08:29; Status DC Fentanyl Citrate (Fentanyl 2ml Vial) 100 mcg STK-MED ONCE .ROUTE ; Start 11/17/19 at 07:14; Stop 11/17/19 at 07:14; Status DC Rocuronium [place] (Zemuron) 50 mg STK-MED ONCE .ROUTE ; Start 11/17/19 at 07:14; Stop 11/17/19 at 07:15; Status DC Desflurane (Suprane) 60 ml STK-MED ONCE IH ; Start 11/17/19 at 07:15; Stop 11/17/19 at 07:16; Status DC Propofol (Diprivan) 200 mg STK-MED ONCE IV ; Start 11/17/19 at 07:15; Stop 11/17/19 at 07:16; Status DC Lidocaine HCl (Lidocaine Pf 2% Vial) 5 ml STK-MED ONCE .ROUTE ; Start 11/17/19 at 07:15; Stop 11/17/19 at 07:16; Status DC Ondansetron HCl (Zofran) 4 mg STK-MED ONCE .ROUTE ; Start 11/17/19 at 07:15; Stop 11/17/19 at 07:16; Status DC Dexamethasone Sodium Phosphate (Decadron) 4 mg STK-MED ONCE .ROUTE ; Start at 07:15; Stop 11/17/19 at 07:16; Status DC Ketorolac Tromethamine (Toradol 30mg Vial) 30 mg STK-MED ONCE .ROUTE ; Start 11/17/19 at 09:01; Stop 11/17/19 at 09:01; Status DC Sevoflurane (Ultane) 60 ml STK-MED ONCE IH ; Start 11/17/19 at 10:06; Stop 11/17/19 at 10:06; Status DC Fentanyl Citrate (Fentanyl 2ml Vial) 100 mcg STK-MED ONCE .ROUTE ; Start 11/17/19 at 10:13; Stop 11/17/19 at 10:13; Status DC Oxycodone/ Acetaminophen (Percocet 5/325) 1 tab PRN Q4HRS PRN PO PAIN MILD TO MOD; Start 11/17/19 at 10:30 Oxycodone/ Acetaminophen (Percocet 5/325) 2 tab PRN Q4HRS PRN PO PAIN SEVERE; Start 11/17/19 at 10:45 Vitals/I & O Vital Sign - Last 24 Hours 11/16/19 11/16/19 11/16/19 11/16/19 11:00 15:00 19:00 20:00 Temp 97.5 97.8 98.1 97.5 97.8 98.1 Pulse 69 93 61 Resp 18 18 16 B/P (MAP) 116/57 (76) 104/64 (77) 119/66 (83) Pulse Ox 100 99 95 O2 Delivery Room Air 11/16/19 11/17/19 11/17/19 11/17/19 23:00 03:00 07:59 08:00 Temp 97.9 98.3 98.5 97.9 98.3 98.5 Pulse 90 82 73 Resp 16 18 18 B/P (MAP) 100/68 (79) 110/55 (73) 120/57 (78) Pulse Ox 97 97 99 O2 Delivery Room Air Room Air 7/19/20 7/19/20 7/19/20 7/19/20 10:02 10:12 10:16 10:17 Temp 99.3 98.9 99.3 98.9 Pulse 79 86 Resp 16 16 16 B/P (MAP) 108/77 131/62 Pulse Ox 100 100 98 O2 Delivery Simple Mask Room Air Room Air Room Air O2 Flow Rate 10 11/17/19 11/17/19 10:22 10:32 Pulse 86 Resp 16 16 B/P (MAP) 122/62 Pulse Ox 98 98 O2 Delivery Room Air Room Air Intake and Output 11/16/19 11/16/19 11/17/19 15:00 23:00 07:00 Intake Total 340 ml 150 ml 0 ml Balance 340 ml 150 ml 0 ml Justicifation of Admission Dx: Justifications for Admission: Justification of Admission Dx: Yes DANY FRANCE MD Nov 17, 2019 11:00
--- NOTE | 2019-11-17 11:18 | NUR ---
patient returned back from surgery at approximately 1051
[2019-11-17] MEDS: oxyCODONE/APAP 5/325 1 TAB TABLET PO PRN (12:22)
--- NOTE | 2019-11-17 18:21 | NUR ---
Received phone call from in [facility]. Phone number provided [phone] for updates/concerns.
[2019-11-18 03:00] VITALS: BP 89/44
[2019-11-18 07:00] VITALS: BP 129/69
[2019-11-18] MEDS: IV NORMAL SALINE 1000ML BAG 1,000 ML IV SCH (07:12)
[2019-11-18] MEDS: oxyCODONE/APAP 5/325 1 TAB TABLET PO PRN (07:17)
--- NOTE | 2019-11-18 08:01 | PDOC ---
PROGRESS NOTES History of Present Illness History of Present Illness VTE Prophylaxis Ordered VTE Prophylaxis Devices: No VTE Pharmacological Prophylaxi: Yes discharge dx Assessment/Plan IMPRESSION: Incarcerated inguinal hernia POD # 2 Moderate-sized fat-containing left inguinal hernia. No herniated bowel or evidence for obstruction. There is mild fat stranding in the herniated fat which could relate to inflammation. plan========= admit ADAT GEN SURGERY FOLLOWING DVT PROPHYLAXIS NPO covid testing NEG OR 11/16 for repair. discharge 11/17 ok with surgery D/C PLANNING 25 MIN D/W RN Justicifation of Admission Dx: Justicifation of Admission Dx: Justifications for Admission: Justification of Admission Dx: Yes Operative Note Operative Note Operative Note: Preoperative Diagnosis: Left inguinal hernia Postoperative Diagnosis: Same Procedure: Left inguinal hernia repair with mesh Surgeon: Richy Corporate Logistics Manager: JAVI Vee Anesthesia: General EBL: 10 mL Specimen: Hernia sac to pathology Drains: None Complications: None Indication: The patient is a 23-year-old male presented with left inguinal hernia and incarceration with fatty contents. The incarceration did resolve spontaneousl Vitals Vitals Vital Signs Date Time Temp Pulse Resp B/P (MAP) Pulse Ox O2 Delivery O2 Flow Rate FiO2 11/18/19 07:17 Room Air 11/18/19 03:00 98.3 68 20 89/44 (59) 93 98.3 11/17/19 10:02 10 Physical Exam General: Alert, Oriented X3, Cooperative, No acute distress Abdomen: Normal bowel sounds, Soft, No hepatosplenomegaly Extremities: No cyanosis Skin: No rashes Assessment and Plan Assessmemt and Plan Problems Medical Problems: (1) Incarcerated hernia Status: Acute Comment Review of Relevant I have reviewed the following items lucho (where applicable) has been applied. Medications Current Medications Fentanyl Citrate (Fentanyl 2ml Vial) 25 mcg 1X ONCE IVP Last administered on 11/15/19at 17:00; Start 11/15/19 at 16:00; Stop 11/15/19 at 16:01; Status DC Sodium Chloride 1,000 ml @ 1,000 mls/hr 1X ONCE IV Last administered on 11/15/19at 17:01; Start 11/15/19 at 16:00; Stop 11/15/19 at 16:59; Status DC Iohexol (Omnipaque 300 Mg/ml) 75 ml 1X ONCE IV ; Start 11/15/19 at 16:45; Stop 11/15/19 at 16:46; Status DC Info (CONTRAST GIVEN -- Rx MONITORING) 1 each PRN DAILY PRN MC SEE COMMENTS; Start 11/15/19 at 16:45; Stop 11/17/19 at 16:44; Status DC Ondansetron HCl (Zofran) 4 mg PRN Q8HRS PRN IV NAUSEA/VOMITING; Start 11/15/19 at 18:15; Stop 11/16/19 at 18:14; Status DC Fentanyl Citrate (Fentanyl 2ml Vial) 50 mcg PRN Q1HR PRN IV PAIN; Start 11/15/19 at 18:15; Stop 11/16/19 at 18:14; Status DC Sodium Chloride 1,000 ml @ 125 mls/hr Q8H IV Last administered on 11/16/19at 14:55; Start 11/15/19 at 18:11; Stop 11/16/19 at 18:10; Status DC Iohexol (Omnipaque 300 Mg/ml) 100 ml STK-MED ONCE .ROUTE ; Start 11/15/19 at 21 :13; Stop 11/15/19 at 21:13; Status DC Cefazolin Sodium/ Dextrose 50 ml @ 100 mls/hr 1X PREOP PRN IV PRIOR TO PROCEDURE Last administered on 11/17/19at 08:40; Start 11/17/19 at 06:00; Stop 11/17/19 at 18:00; Status DC Ondansetron HCl (Zofran) 4 mg PRN Q6HRS PRN IV NAUSEA/VOMITING Last administered on 11/17/19at 12:23; Start 11/17/19 at 07:00; Stop 11/18/19 at 06:59; Status DC Fentanyl Citrate (Fentanyl 2ml Vial) 25 mcg PRN Q5MIN PRN IV MILD PAIN 1-3; Start 11/17/19 at 07:00; Stop 11/18/19 at 06:59; Status DC Fentanyl Citrate (Fentanyl 2ml Vial) 50 mcg PRN Q5MIN PRN IV MODERATE TO SEVERE PAIN Last administered on 11/17/19at 10:22; Start 11/17/19 at 07:00; Stop 11/18/19 at 06:59; Status DC Morphine Sulfate (Morphine Sulfate) 1 mg PRN Q10MIN PRN IV SEVERE PAIN 7-10; Start 11/17/19 at 07:00; Stop 11/18/19 at 06:59; Status DC Ringer's Solution 1,000 ml @ 30 mls/hr Q24H IV ; Start 11/17/19 at 07:00; Stop 11/17/19 at 19:00; Status DC Lidocaine HCl (Xylocaine-Mpf 1% 2ml Vial) 2 ml PRN 1X PRN ID PRIOR TO IV START; Start 11/17/19 at 07:00; Stop 11/18/19 at 06:59; Status DC Hydromorphone HCl (Dilaudid) 0.5 mg PRN Q10MIN PRN IV SEV PAIN, Second choice; Start 11/17/19 at 07:00; Stop 11/18/19 at 06:59; Status DC Prochlorperazine Edisylate (Compazine) 5 mg PACU PRN PRN IV NAUSEA, MRX1; Start 11/17/19 at 07:00; Stop 11/18/19 at 06:59; Status DC Sodium Chloride 1,000 ml @ 125 mls/hr Q8H IV Last administered on 11/18/19at 07:12; Start 11/16/19 at 22:00 Bupivacaine HCl/ Epinephrine Bitart (Sensorcain-Epi 0.5%-1:071125 Mpf) 30 ml STK-MED ONCE .ROUTE Last administered on 11/17/19at 08:57; Start 11/17/19 at 06:55; Stop 11/17/19 at 06:56; Status DC Bacitracin 88484 unit/Sodium Chloride 500 ml @ 500 mls/hr 1X ONCE IRR Last administered on 11/17/19at 08:57; Start 11/17/19 at 07:30; Stop 11/17/19 at 08:29; Status DC Fentanyl Citrate (Fentanyl 2ml Vial) 100 mcg STK-MED ONCE .ROUTE ; Start at 07:14; Stop 11/17/19 at 07:14; Status DC Rocuronium [place] (Zemuron) 50 mg STK-MED ONCE .ROUTE ; Start 11/17/19 at 07 :14; Stop 11/17/19 at 07:15; Status DC Desflurane (Suprane) 60 ml STK-MED ONCE IH ; Start 11/17/19 at 07:15; Stop 11/17/19 at 07:16; Status DC Propofol (Diprivan) 200 mg STK-MED ONCE IV ; Start 11/17/19 at 07:15; Stop 11/17/19 at 07:16; Status DC Lidocaine HCl (Lidocaine Pf 2% Vial) 5 ml STK-MED ONCE .ROUTE ; Start 11/17/19 at 07:15; Stop 11/17/19 at 07:16; Status DC Ondansetron HCl (Zofran) 4 mg STK-MED ONCE .ROUTE ; Start 11/17/19 at 07:15; Stop 11/17/19 at 07:16; Status DC Dexamethasone Sodium Phosphate (Decadron) 4 mg STK-MED ONCE .ROUTE ; Start 11/17/19 at 07:15; Stop 11/17/19 at 07:16; Status DC Ketorolac Tromethamine (Toradol 30mg Vial) 30 mg STK-MED ONCE .ROUTE ; Start 11/17/19 at 09:01; Stop 11/17/19 at 09:01; Status DC Sevoflurane (Ultane) 60 ml STK-MED ONCE IH ; Start 11/17/19 at 10:06; Stop 11/17/19 at 10:06; Status DC Fentanyl Citrate (Fentanyl 2ml Vial) 100 mcg STK-MED ONCE .ROUTE ; Start 11/17/19 at 10:13; Stop 11/17/19 at 10:13; Status DC Oxycodone/ Acetaminophen (Percocet 5/325) 1 tab PRN Q4HRS PRN PO PAIN MILD TO MOD; Start 11/17/19 at 10:30 Oxycodone/ Acetaminophen (Percocet 5/325) 2 tab PRN Q4HRS PRN PO PAIN SEVERE Last administered on 11/18/19at 07:17; Start 11/17/19 at 10:45 Vitals/I & O Vital Sign - Last 24 Hours 11/17/19 11/17/19 11/17/19 11/17/19 10:02 10:12 10:16 10:17 Temp 99.3 98.9 99.3 98.9 Pulse 79 86 Resp 16 16 16 B/P (MAP) 108/77 131/62 Pulse Ox 100 100 98 O2 Delivery Simple Mask Room Air Room Air Room Air O2 Flow Rate 10 11/17/19 11/17/19 11/17/19 11/17/19 10:22 10:32 10:52 11:15 Temp 97.7 97.7 Pulse 86 65 Resp 16 16 20 B/P (MAP) 122/62 111/63 (79) Pulse Ox 98 98 96 O2 Delivery Room Air Room Air Room Air Room Air 11/17/19 11/17/19 11/17/19 11/17/19 11:30 11:45 12:00 12:22 Pulse 85 80 79 B/P (MAP) 115/58 (77) 112/63 (79) 113/63 (80) O2 Delivery Room Air 11/17/19 11/17/19 11/17/19 11/17/19 12:30 13:00 13:22 14:00 Temp 98.6 98.6 Pulse 82 68 66 Resp 18 B/P (MAP) 113/64 (80) 82/55 (64) 105/48 (67) Pulse Ox 97 O2 Delivery Room Air Room Air 11/17/19 11/17/19 11/17/19 11/17/19 15:00 19:00 20:00 23:00 Temp 98.2 98.6 97.8 98.2 98.6 97.8 Pulse 70 76 66 Resp 18 18 16 B/P (MAP) 109/57 (74) 135/73 (93) 135/78 (97) Pulse Ox 96 95 95 O2 Delivery Room Air Room Air 11/18/19 11/18/19 03:00 07:17 Temp 98.3 98.3 Pulse 68 Resp 20 B/P (MAP) 89/44 (59) Pulse Ox 93 O2 Delivery Room Air Justicifation of Admission Dx: Justifications for Admission: Justification of Admission Dx: Yes DANY FRANCE MD Nov 18, 2019 08:01
--- NOTE | 2019-11-18 10:07 | PDOC ---
MARCY ELDER APRN 11/18/19 1007: SURGICAL PROGRESS NOTE Subjective no n/v, tolerating diet pain managed urinating Vital Signs Vital Signs Date Time Temp Pulse Resp B/P (MAP) Pulse Ox O2 Delivery O2 Flow Rate FiO2 11/18/19 07:17 Room Air 11/18/19 03:00 98.3 68 20 89/44 (59) 93 98.3 11/17/19 10:02 10 I&O Intake and Output 11/18/19 07:00 # Voids 5 General: Alert, Oriented X3, Cooperative Abdomen: Soft, Other (hernia site dressing d/i) Problem List Problems Medical Problems: (1) Incarcerated hernia Status: Acute Assessment/Plan s/p LIH, stable surgical can dc when medically stable Justicifation of Admission Dx: Justifications for Admission: Justification of Admission Dx: Yes BERENICE KUMARI MD 11/18/19 1103: SURGICAL PROGRESS NOTE Assessment/Plan Agree with above; ok to discharge MARCY ELDER APRN Nov 18, 2019 10:07 BERENICE KUMARI MD Nov 18, 2019 11:03
[2019-11-18 11:00] VITALS: BP 107/58
--- NOTE | 2019-11-18 11:15 | PDOC3 ---
Discharge Summary Date of Admission: Nov 16, 2019 Date of Discharge: Nov 18, 2019 Follow-Up: 1-2 days Admitting Diagnosis comment: discharge dx Assessment/Plan IMPRESSION: Incarcerated inguinal hernia POD # 2 Moderate-sized fat-containing left inguinal hernia. No herniated bowel or evidence for obstruction. There is mild fat stranding in the herniated fat which could relate to inflammation. plan========= admit ADAT GEN SURGERY FOLLOWING DVT PROPHYLAXIS NPO covid testing NEG OR 11/16 for repair. discharge 11/17 ok with surgery D/C PLANNING 25 MIN Identification/Chief Complaint Chief Complaint SEEN IN ER , 23 year old male who presents with states since August 2014 he has had this left inguinal hernia that is gotten worse over the last 3 years. very painful , now gone down into his scrotum. Upon examination patient's left side of his scrotum is swollen // tender with palpation. // not reducible. States his burning nonradiating left inguinal pain is a 7 out of 10. denies abdominal pain, nausea, vomiting, fever, diarrhea, constipation, dysuria, penile discharge, chest pain, shortness of air, cough, numbness or tingling. Patient was asymptomatic with COVID in 2019 Past Medical History Past Medical History Past Medical History Past Medical History Past Medical History: Other Additional Past Medical Histor: INGUINAL HERNIA Past Surgical History: No Surgical History Smoking Status: Former Smoker Alcohol Use: None Family History Family History: High Cholestrol, Hypertension Social History Smoke: No ALCOHOL: none Drugs: None Current Problem List D/W RN Justicifation of Admission Dx: Justicifation of Admission Dx: Justifications for Admission: Justification of Admission Dx: Yes Operative Note Operative Note Operative Note: Preoperative Diagnosis: Left inguinal hernia Postoperative Diagnosis: Same Procedure: Left inguinal hernia repair with mesh Surgeon: Richy Strawberry Grower: JAVI Vee Anesthesia: General EBL: 10 mL Specimen: Hernia sac to pathology Drains: None Complications: None Indication: The patient is a 23-year-old male presented with left inguinal hernia and incarceration with fatty contents. The incarceration did resolve spontaneousl Vitals Vitals Vital Signs ROOM AIR Date Time Temp Pulse Resp B/P (MAP) Pulse Ox O2 Delivery O2 Flow Rate FiO2 11/18/19 07:17 Room Air 11/18/19 03:00 98.3 68 20 89/44 (29) 93 98.3 11/17/19 10:02 10 Physical Exam General: Alert, Oriented X3, Cooperative, No acute distress Abdomen: Normal bowel sounds, Soft, No hepatosplenomegaly Extremities: No cyanosis Skin: No rashes Assessment and Plan Assessmemt and Plan Problems Medical Problems: (1) Incarcerated hernia Status: Acute FINAL DIAGNOSIS Problems Medical Problems: (1) Incarcerated hernia Status: Acute Brief Hospital Course Mr. Courtney is a 23 old [sex] who presented with [ INCARCERATED INGUINAL HERNIA] CONDITION AT DISCHARGE: Improved Discharge Medications Current Medications Fentanyl Citrate (Fentanyl 2ml Vial) 25 mcg 1X ONCE IVP Last administered on 11/15/19at 17:00; Start 11/15/19 at 16:00; Stop 11/15/19 at 16:01; Status DC Sodium Chloride 1,000 ml @ 1,000 mls/hr 1X ONCE IV Last administered on 11/15/19at 17:01; Start 11/15/19 at 16:00; Stop 11/15/19 at 16:59; Status DC Iohexol (Omnipaque 300 Mg/ml) 75 ml 1X ONCE IV ; Start 11/15/19 at 16:45; Stop 11/15/19 at 16:46; Status DC Info (CONTRAST GIVEN -- Rx MONITORING) 1 each PRN DAILY PRN MC SEE COMMENTS; Start 11/15/19 at 16:45; Stop 11/17/19 at 16:44; Status DC Ondansetron HCl (Zofran) 4 mg PRN Q8HRS PRN IV NAUSEA/VOMITING; Start 11/15/19 at 18:15; Stop 11/16/19 at 18:14; Status DC Fentanyl Citrate (Fentanyl 2ml Vial) 50 mcg PRN Q1HR PRN IV PAIN; Start 11/15/19 at 18:15; Stop 11/16/19 at 18:14; Status DC Sodium Chloride 1,000 ml @ 125 mls/hr Q8H IV Last administered on 11/16/19at 14:55; Start 11/15/19 at 18:11; Stop 11/16/19 at 18:10; Status DC Iohexol (Omnipaque 300 Mg/ml) 100 ml STK-MED ONCE .ROUTE ; Start 11/15/19 at 21:13; Stop 11/15/19 at 21:13; Status DC Cefazolin Sodium/ Dextrose 50 ml @ 100 mls/hr 1X PREOP PRN IV PRIOR TO PROCEDURE Last administered on 11/17/19at 08:40; Start 11/17/19 at 06:00; Stop 11/17/19 at 18:00; Status DC Ondansetron HCl (Zofran) 4 mg PRN Q6HRS PRN IV NAUSEA/VOMITING Last administered on 11/17/19at 12:23; Start 11/17/19 at 07:00; Stop 11/18/19 at 06:59; Status DC Fentanyl Citrate (Fentanyl 2ml Vial) 25 mcg PRN Q5MIN PRN IV MILD PAIN 1-3; St art 11/17/19 at 07:00; Stop 11/18/19 at 06:59; Status DC Fentanyl Citrate (Fentanyl 2ml Vial) 50 mcg PRN Q5MIN PRN IV MODERATE TO SEVERE PAIN Last administered on 11/17/19at 10:22; Start 11/17/19 at 07:00; Stop 11/18/19 at 06:59; Status DC Morphine Sulfate (Morphine Sulfate) 1 mg PRN Q10MIN PRN IV SEVERE PAIN 7-10; Start 11/17/19 at 07:00; Stop 11/18/19 at 06:59; Status DC Ringer's Solution 1,000 ml @ 30 mls/hr Q24H IV ; Start 11/17/19 at 07:00; Stop 11/17/19 at 19:00; Status DC Lidocaine HCl (Xylocaine-Mpf 1% 2ml Vial) 2 ml PRN 1X PRN ID PRIOR TO IV START; Start 11/17/19 at 07:00; Stop 11/18/19 at 06:59; Status DC Hydromorphone HCl (Dilaudid) 0.5 mg PRN Q10MIN PRN IV SEV PAIN, Second choice; Start 11/17/19 at 07:00; Stop 11/18/19 at 06:59; Status DC Prochlorperazine Edisylate (Compazine) 5 mg PACU PRN PRN IV NAUSEA, MRX1; Start 11/17/19 at 07:00; Stop 11/18/19 at 06:59; Status DC Sodium Chloride 1,000 ml @ 125 mls/hr Q8H IV Last administered on 11/18/19at 07:12; Start 11/16/19 at 22:00 Bupivacaine HCl/ Epinephrine Bitart (Sensorcain-Epi 0.5%-1:074797 Mpf) 30 ml STK-MED ONCE .ROUTE Last administered on 11/17/19at 08:57; Start 11/17/19 at 06:55; Stop 11/17/19 at 06:56; Status DC Bacitracin 29002 unit/Sodium Chloride 500 ml @ 500 mls/hr 1X ONCE IRR Last administered on 11/17/19at 08:57; Start 11/17/19 at 07:30; Stop 11/17/19 at 08:29; Status DC Fentanyl Citrate (Fentanyl 2ml Vial) 100 mcg STK-MED ONCE .ROUTE ; Start 11/17/19 at 07:14; Stop 11/17/19 at 07:14; Status DC Rocuronium [place] (Zemuron) 50 mg STK-MED ONCE .ROUTE ; Start 11/17/19 at 07:14; Stop 11/17/19 at 07:15; Status DC Desflurane (Suprane) 60 ml STK-MED ONCE IH ; Start 11/17/19 at 07:15; Stop 11/17/19 at 07:16; Status DC Propofol (Diprivan) 200 mg STK-MED ONCE IV ; Start 11/17/19 at 07:15; Stop 11/17/19 at 07:16; Status DC Lidocaine HCl (Lidocaine Pf 2% Vial) 5 ml STK-MED ONCE .ROUTE ; Start 11/17/19 at 07:15; Stop 11/17/19 at 07:16; Status DC Ondansetron HCl (Zofran) 4 mg STK-MED ONCE .ROUTE ; Start 11/17/19 at 07:15; Stop 11/17/19 at 07:16; Status DC Dexamethasone Sodium Phosphate (Decadron) 4 mg STK-MED ONCE .ROUTE ; Start 11/17/19 at 07:15; Stop 11/17/19 at 07:16; Status DC Ketorolac Tromethamine (Toradol 30mg Vial) 30 mg STK-MED ONCE .ROUTE ; Start 11/17/19 at 09:01; Stop 11/17/19 at 09:01; Status DC Sevoflurane (Ultane) 60 ml STK-MED ONCE IH ; Start 11/17/19 at 10:06; Stop 11/17/19 at 10:06; Status DC Fentanyl Citrate (Fentanyl 2ml Vial) 100 mcg STK-MED ONCE .ROUTE ; Start 11/17/19 at 10:13; Stop 11/17/19 at 10:13; Status DC Oxycodone/ Acetaminophen (Percocet 5/325) 1 tab PRN Q4HRS PRN PO PAIN MILD TO MOD; Start 11/17/19 at 10:30 Oxycodone/ Acetaminophen (Percocet 5/325) 2 tab PRN Q4HRS PRN PO PAIN SEVERE Last administered on 11/18/19at 07:17; Start 11/17/19 at 10:45 Vital Signs Vital Signs Date Time Temp Pulse Resp B/P (MAP) Pulse Ox O2 Delivery O2 Flow Rate FiO2 11/18/19 07:17 Room Air 11/18/19 07:00 98.0 61 20 129/69 (89) 100 98.0 11/17/19 10:02 10 Allergies Allergies Coded Allergies Type Severity Reaction Last Updated Verified No Known Drug Allergies 11/15/19 No Disposition/Orders: Other (D/C TO ASSISTED) Justicifation of Admission Dx: Justifications for Admission: Justification of Admission Dx: Yes DANY FRANCE MD Nov 18, 2019 11:15
[2019-11-18] MEDS ORDERED: ACET325T9 PO (11:17)
--- NOTE | 2019-11-18 11:18 | DISCH ---
DISCHARGE INSTRUCTIONS Condition on Discharge Condition on Discharge: Stable Activity After Discharge Activity Instructions for Disc: Activity as tolerated Bathing Instructions: Shower-keep dressing dry Lifting Instructions after Dis: No heavy lifting, No pulling or pushing Driving Instructions after Dis: Do not drive Diet after Discharge Diet after Discharge: Regular Wound Incision Care Wound/Incision Care: Reinforce dressing PRN Wound Care Equipment: Sutures/dayron Checks after Discharge Checks after discharge: Check blood press - daily Contacting the DR. after DC Call your doctor for: If your condition worsens Treatment/Equipment after DC Adaptive Equipment Issued: None DANY FRANCE MD Nov 18, 2019 11:18
--- NOTE | 2019-11-18 12:52 | NUR ---
Discharge instructions given with follow up to surgeon in 2 weeks, ok to bath after 11/19/19, see instruction sheet for details.
--- NOTE | 2019-11-18 13:34 | NUR ---
Discharge per w/c accompanied by guards
--- NOTE | 2019-11-19 17:07 | PATHOLOGY ---
[facility] Accession Number: [id number] . 01 Material submitted: . hernia - HERNIA SAC . 01 Clinical history: . Incarcerated hernia . 02 Diagnosis: Segment of mesothelial-lined fibromembranous and fibroadipose tissue, inguinal hernia repair: - Hernia sac showing focal submesothelial mild reactive fibrosis. 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 02 Electronically signed: . Darvin Felder MD, Pathologist NPI- [id number] . 01 Gross description: . The specimen is received in formalin, labeled "Alberto Beckham Brown, hernia sac". Received is a segment of fibromembranous tissue measuring 7.1 x 1.8 x 1.3 cm in greatest dimensions. No distinct nodules or lesions are noted grossly. The specimen is submitted representatively in cassette A1. ([facility]; 11/18/2019) [facility] 11/18/2019 1645 Local . 02 Pathologist provided ICD-10: K44.9 . 02 CPT . 090715 Specimen Comment: A courtesy copy of this report has been sent to [phone], [phone] Specimen Comment: [id number] Specimen Comment: Report sent to / DR BERRIOS Performed at: 01 [facility] [address], [place] [id number] MD Eric Humphrey MD Phone: [phone] Performed at: 02 [facility] [address], [place] [id number] MD Darvin Felder MD Phone: [phone]
== END 2019-11-18 13:38 | DRG 352 ==
LOC: ER 14:28 → EEVIPCON 14:28 → 4 NORTH 18:08
PROVIDERS: ADMIT Internal Medicine; ATTEND Internal Medicine
PROC: 0YU60JZ Supplement Left Inguinal Region with Synthetic Substitute, Open Approach (ICD-10-PCS; principal; 2019-11-15)
DX: K40.30 Unilateral inguinal hernia, with obstruction, without gangrene, not specified as recurrent (principal); N50.89 Other specified disorders of the male genital organs; Z20.828 Contact with and (suspected) exposure to other viral communicable diseases; Z82.49 Family history of ischemic heart disease and other diseases of the circulatory system; Z87.891 Personal history of nicotine dependence; Z79.899 Other long term (current) drug therapy
CPT/HCPCS: 36415; 74177; 80053; 80307; 81001; 83605; 83690; 85025; 85610; 96361; A7015; C1781; J0690; J1100; J1885; J2405; J2704; J3010; J7030; J7120; 99285-25; G0378; U0003-CS